=== PATIENT | male | born 1990 | race Caucasian/White ===

== ENCOUNTER 2023-07-29 11:14 | Day surgery (SDC) | payer OTHER ==
[~2023-07-29] VITALS: Ht 190.5 cm; Wt 92.6 kg
[2023-07-29] VITALS (7 sets, daily range): BP systolic 124–137; BP diastolic 75–82
--- NOTE | 2023-07-29 11:45 | NUR ---
Ambulatory in Day Surgery History, Chart, Medications and Allergies reviewed before start of procedure.Lungs clear T/O to Auscultation. Patient confirms NPO status and agrees with scheduled surgery. Patient reports completing Chlorhexadine shower X2 prior to admission to hospital.Surgical site prepped with 2% Chlorhexidine cloth wipe. Patient States Post-Procedure ride home has been arranged.
--- NOTE | 2023-07-29 14:49 | NUR ---
REPORT RECEIVED FROM GARRETT HIDALGO. VSS. PT ABLE TO REPOSITION SELF IN BED. PT HAS 2 DRESSINGS TO LEFT LEG THAT ARE C/D/I WITHOUT DRAINAGE, REDNESS, OR SWELLING. PT DENIES NAUSEA OR PAIN. AT BEDSIDE.
--- NOTE | 2023-07-29 15:29 | NUR ---
Patient up to Ambulate independently. Gait steady. VSS. Discharge instructions reviewed with patient. Patient verbalizes understanding. Copy given to patient to take home. Dressing to procedure site clean, dry, intact with no visible drainage, swelling, erythema or bruising noted. Patient States Post-Procedure ride home has been arranged. Discharged via wheelchair to private car for ride home. PT BELONGINGS RETURNED TO PT.
== END 2023-07-29 15:33 | disposition home or self-care (01) ==
LOC: ORSCMMR 11:14 → ORD 12:30 → ORSCMMR 12:30 → ORSCSDS 07-30 10:15
PROVIDERS: Orthopaedic Surgery
PROC: 0JJW0ZZ Inspection of Lower Extremity Subcutaneous Tissue and Fascia, Open Approach (ICD-10-PCS; principal; 2023-07-29 12:30)
DX: M79.5 Residual foreign body in soft tissue (principal); S71.142A Puncture wound with foreign body, left thigh, initial encounter; X58.XXXA Exposure to other specified factors, initial encounter
CPT/HCPCS: J0690; J1100; J1885; J2250; J2405; J2704; J3010; J7120